=== PATIENT | male | born 1945 | race Caucasian/White ===

== ENCOUNTER 2018-05-16 18:16 | Emergency (ER) | payer OTHER ==
[~2018-05-16] VITALS: Ht 167.6 cm; Wt 75.3 kg
[2018-05-16 19:20] LABS: ABSOLUTE NEUTROPHILS 5.3 thou/uL (1.4-8.2); BASOPHILS 1.2 % (0.0-2.0); HEMATOCRIT 49.2 % (42.0-52.0); HEMOGLOBIN 17.1 gm/dL (14.0-18.0); MCH 31.4 pg (26.0-34.0); MCHC 34.7 g/dL (28.0-37.0); MCV 90.4 fL (80.0-100.0); MONOCYTES 9.8 % (1.0-8.0); PLATELET COUNT 195 thou/uL (150-400); RBC 5.44 mil/uL (4.50-6.00); RDW 13.7 % (10.5-14.5); WBC 8.6 thou/uL (4.0-11.0)
[2018-05-16 19:29] LABS: ANION GAP 7 mmol/L (7-16); BUN 23 mg/dL (7-18); CALCIUM 9.1 mg/dL (8.5-10.1); CHLORIDE 104 mmol/L (98-107); CO2 29 mmol/L (21-32); CREATININE 1.1 mg/dL (0.7-1.3); GLUCOSE 116 mg/dL (74-106); POTASSIUM 3.9 mmol/L (3.5-5.1); SODIUM 140 mmol/L (136-145)
[2018-05-16 19:37] LABS: TROPONIN-I <0.06 ng/mL (<0.06)
[2018-05-16] MEDS ORDERED: ASPIR 8181 MG PO (20:29)
[2018-05-16 20:30] VITALS: BP 139/69
[2018-05-16] MEDS ORDERED: JALYN 0.5-0.41 EACH PO (20:30)
--- NOTE | 2018-05-17 10:47 | EKG ---
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
== END 2018-05-16 20:30 | disposition home or self-care (01) ==
LOC: ER 18:16
PROVIDERS: Student in an Organized Health Care Education/Training Program
DX: R07.89 Other chest pain (principal); Z88.8 Allergy status to other drugs, medicaments and biological substances; Z90.49 Acquired absence of other specified parts of digestive tract